=== PATIENT | female | born 1995 | race Caucasian/White ===

== ENCOUNTER 2018-02-07 18:53 | Emergency (ER) | payer OTHER ==
[~2018-02-07] VITALS: Ht 162.6 cm; Wt 65.8 kg
[2018-02-07 19:00] VITALS: BP 123/75
[2018-02-07] MEDS ORDERED: AMOX-CLAV 875-1 EACH PO (19:45)
--- NOTE | 2018-02-07 19:45 | ED SKIN/ALLERGY COMPLAINT ---
History of Present Illness General Chief Complaint: General Adult Stated Complaint: PT HAS A SPIDER BITE ON LT THIGH Source: patient, family Exam Limitations: no limitations Vital Signs & Intake/Output Vital Signs & Intake/Output Vital Signs Date Time Temp Pulse Resp B/P B/P Pulse O2 O2 Flow FiO2 Mean Ox Delivery Rate 02/07 1900 98.4 88 18 123/75 98 Room Air Allergies Coded Allergies: NO KNOWN ALLERGIES (05/09/12) Reconcile Medications Amoxicillin/Clavulanate Potass (Amox-Clav 875-125 MG Tablet) 875 MG-125 MG TABLET 1 TAB PO BID cellulitis Triage Note: PRESENTS TO ED FOR EVALUATION OF LEFT UPPER THIGH BUG BITE. PT NOTICED IT LAST FRIDAY AND NOW WORSENING. DENIED FEVER. Triage Nurses Notes Reviewed? yes : No Patient currently breastfeeds: No HPI: 22F no PMH, initially with what she thought was a mosquito bite found upon waking up 2 days ago, present on her upper left thigh/buttock, with worsening swelling and erythema since then. Noticed a pustule yesterday which she popped returning clear serous fluid. It has not drained since. The erythema is worsening. She has not noticed any black or brown recluse spiders in her home. Denies fever, chills, stiff neck, vision changes, nauea, vomiting, chest pain, SOB, abdominal pain, diarrhea, dysuria, muscle cramping/spasms, numbness, weakness, paresthesia. Past History Travel History Traveled to [place] past 21 day No Medical History Any Pertinent Medical History? see below for history Surgical History Surgical History: non-contributory Psychosocial History What is your primary language [place] Tobacco Use: Never used Family History Hx Contributory? No Review of Systems Review of Systems Constitutional: Reports: no symptoms. EENTM: Reports: no symptoms. Respiratory: Reports: no symptoms. Cardiovascular: Reports: no symptoms. GI: Reports: no symptoms. Genitourinary: Reports: no symptoms. Musculoskeletal: Reports: no symptoms. Skin: Reports: no symptoms. Neurological/Psychological: Reports: no symptoms. Hematologic/Endocrine: Reports: no symptoms. Immunologic/Allergic: Reports: no symptoms. All Other Systems: Reviewed and Negative Physical Exam Physical Exam General Appearance: well developed/nourished, no apparent distress Head: atraumatic, normal appearance Eyes: Bilateral: normal appearance. Ears, Nose, Throat: normal ENT inspection, hearing grossly normal Neck: normal inspection, supple Respiratory: normal breath sounds Cardiovascular: regular rate/rhythm Gastrointestinal: soft, non-tender Back: normal inspection Extremities: normal inspection, normal range of motion, no edema Neurologic/Psych: awake, alert, oriented x 3, normal mood/affect Skin: raised erythematous nodule on left upper thigh, erythema measuring 2cm in diameter, no pus or drainage, tender, normal sensation, no drainage Lymphatic: no anterior cervical angella Progress Differential Diagnosis: abscess/cellulitis, allergic reaction, angioedema, contact dermatitis, drug reaction, urticaria Plan of Care: Patient will be discharged home on Augmentin and will follow up as outpatient. Departure Departure Disposition: HOME OR SELF CARE Condition: Stable Clinical Impression Primary Impression: Cellulitis of left thigh Secondary Impressions: Bug bite Qualifiers: Encounter type: initial encounter Qualified Code: W57.XXXA - Bitten or stung by nonvenomous insect and other nonvenomous arthropods, initial encounter Referrals: Rob Grady DO (PCP/Family) Additional Instructions: Keep the area clean and dry. You can use a topical antibiotic/anesthetic. Drink plenty of water. REturn to ER if you notice new or worsening symptoms. Departure Forms: Customer Survey General Discharge Information Prescriptions: Current Visit Scripts Amoxicillin/Clavulanate Potass (Amox-Clav 875-125 MG Tablet) 1 TAB PO BID #20 TAB
== END 2018-02-07 19:59 ==
LOC: ERH 18:53
DX: L03.116 Cellulitis of left lower limb (principal)